=== PATIENT | female | born 1955 | race Caucasian/White ===

== ENCOUNTER 2018-05-18 18:27 | Observation (INO) | payer OTHER, SELFPAY ==
[2018-05-18] VITALS (8 sets, daily range): BP systolic 133–148; BP diastolic 67–73; PULSE 59–83; RESP 16–20; TEMP 36.5–36.8; O2SAT 94–98; BMI 31.1; BMI 30.8
--- NOTE | 2018-05-18 19:14 | EKG12_ITS ---
Test Reason : CP Blood Pressure : / mmHG Vent. Rate : 075 BPM Atrial Rate : 075 BPM P-R Int : 142 ms QRS Dur : 084 ms QT Int : 392 ms P-R-T Axes : 041 -45 040 degrees QTc Int : 437 ms Normal sinus rhythm Low voltage QRS Left anterior fascicular block Abnormal ECG Confirmed by CRIS BUSTAMANTE, EMILIO ([id number]), web content editor HANY STONE ([id number]) on 05/19/2018 1:01:38 PM Referred By: EVAN Confirmed By:EMILIO LYNCH MD
[2018-05-18] MEDS: Aspirin 81 MG TAB.CHEW 324 MG PO (19:20)
--- NOTE | 2018-05-18 19:20 | RAD_ITS ---
STUDY: X-RAY CHEST REASON FOR EXAM: Female, 62 years old. Chest pain. TECHNIQUE: Single AP portable view of the chest. COMPARISON: 06/26/2014. FINDINGS: The lungs are clear and expanded. There is no demonstrated pleural abnormality. Normal size heart. Normal mediastinum and yaya. Normal visualized pulmonary arteries. Normal visualized aortic arch and descending thoracic aorta. Normal visualized thoracic spine. Normal visualized ribs, clavicles, and shoulders. There is no demonstrated abnormality of the visualized soft tissue structures of the upper abdomen. RAD/Chest 1 View (Portable) IMPRESSION: Normal x-ray examination of the chest. Electronically Signed: Ruslan Luna MD at 19:33 EDT , Service support ,
--- NOTE | 2018-05-18 19:24 | ED.VISSUMM ---
- ER Visit Summary Date of Service: 05/18/18 Chief Complaint: Chest pain History of Present Illness: The patient is a 62 F past medical history of high cholesterol and depression. No prior cardiac history. Reportedly negative stress test 10-15 years ago. No prior cardiac cath. Significant family history of cardiac disease. Quit smoking 25 years ago. Patient states the last 2 months she has had intermittent not exertional chest pain. At times has trouble catching her breath. Denies nausea or diaphoresis. Occasionally it will radiate to her neck. Currently she is 2 out of 10 pain. No history of DVT or PE. No leg pain or swelling. No hemoptysis. This is not pleuritic. Physical Examination: Well-appearing middle-age female. Vital signs are stable afebrile. Pulse ox 97% on room air no signs of hypoxia. H EENT exam unremarkable. Neck nontender no lymphadenopathy. Lungs clear to auscultation bilaterally. Heart regular rate and rhythm no murmur. Chest wall nontender. Abdomen soft and nontender. Normal bowel sounds no peritoneal signs. No pulsatile mass. She is moving all 4 extremities. They are neurovascularly intact. Calves are nontender without edema or cords. Normal range of motion of both upper and lower extremities. She is equal symmetrical radial pulses. Neurologic exam she is awake alert with no focal motor or sensory deficits. Test Results: CBC normal hemoglobin 14. Electrolytes normal normal creatinine and gap. Troponin normal. Initial EKG sinus rhythm rate is 75 with no acute signs of [place] or ischemia. Chest x-ray normal normal cardiac silhouette and mediastinum. Read both by myself the radiologist. Emergency Department Course and Treatment: Patient will undergo a cardiac evaluation for atypical chest pain. Treatment Plan: Repeat exams ?2 patient doing well. She was given 1 sublingual nitroglycerin which resolved her chest pain. Currently she is pain-free her exam is unchanged. She and I and her sister who is a former ER nurse and RN here at [facility] did go over all of her test results. I recommended admission for further evaluation and stress testing which she is going to do. I have the hospitalist on page. Disposition: Admission Impression: Acute chest pain uncertain etiology This note was generated with Qwiltation software. It may contain incorrect words, spelling, and punctuation that were not noted in review of the chart prior to signing ED Disposition - Plan for ED Patient: Chief Complaint: Chest Pain Referrals: Sd Salinas MD [STAFF PHYSICIAN] -
[2018-05-18 19:29] LABS: Absolute Lymphocyte Count 4.03 X10^3/ul (0.83-4.51); Absolute Neutrophil Count 4.4 X10^3/uL (2.0-7.7); Basophil# 0.03 X10^3/uL; Basophil% 0.3 % (0-1); Eosinophil# 0.19 X10^3/uL; Hematocrit 40.9 % (37-47); Hemoglobin 14.3 g/dl (12.0-15.0); Lymphocyte # 4.03 X10^3/ul (4.0); Lymphocyte % 43.2 % (19-41); Mean Corpuscular Hgb 30.8 pg (27.0-32.0); Mean Corpuscular Volume 88.1 fL (81-99); Mean Platelet Vol. 9.5 fl (6.2-12.0); Monocyte# 0.68 X10^3/uL; Monocyte% 7.3 % (0-10); Neutrophil # 4.39 X10^3/uL (2.7-7.7); Neutrophil % 47.1 % (47-70); Platelet Count 346 K/mm3 (150-450); RBC Distribution Width CV 12.3 % (11.6-14.6); RBC Distribution Width SD 39.4 fl (35.1-43.9); Red Blood Count 4.64 M/mm3 (4.2-5.4); White Blood Count 9.3 K/mm3 (4.4-11.0)
[2018-05-18 19:41] LABS: POSITIVE COUNT NO; POSITIVE DIFFERENTIAL NO; POSITIVE MORPHOLOGY NO
[2018-05-18 19:46] LABS: Anion Gap 7 (5-15); BUN 15 mg/dL (7-18); BUN/Creat Ratio 15.7 RATIO (10-20); Chloride 105 mmol/L (98-107); Creatinine, Serum 0.95 mg/dL (0.55-1.02); EST Glomerular Filtration Rate 63 mL/min (>60); Est Glom Filt Rate - Afr Amer 77 mL/min (>60); Estimated Creatinine Clearance 47.52 ml/min; Glucose 84 mg/dL (74-106); Potassium 3.5 mmol/L (3.5-5.1); Sodium Level 139 mmol/L (136-145)
--- NOTE | 2018-05-18 20:30 | PCM.HP.STD ---
Problem List (1) Chest pain Status: Acute (2) Hyperlipidemia Status: Acute History of Present Illness Date of Admission: 05/18/18 Chief Complaint: Chest pain The patient is a 62 year old F with a significant history of hyperlipidemia, former smoker who presents because of progressively worsening chest pain ?1 day duration. Patient reports that in the last 2 months she has had multiple episodes of chest pain that last about 5-15 minutes each time. She has chest pain of 4-5 times a week; typically one episode of chest pain in each particular day. Typically her chest pain goes away when she tries to meditate. However, on the day of admission she continued to have multiple episodes of chest pain. She described her chest pain as located in her mid sternum that prevents her from taking a deep breath. The severity of her chest pain was about 7 out of 10. Her chest pain is nonradiating. At emergency department she received sublingual nitroglycerin that make her pain go away. She was also given 4 tablets of baby aspirin at emergency department. In regard to a hyperlipidemia she does not take any medication and she was getting ready for a follow-up with her PCP. Past Medical History Medical History: Medical History (Last Updated 05/19/18 @ 01:49 by Kiran Reynolds MD) Hyperlipidemia E78.5 Allergies Penicillins Allergy (Verified 06/26/14 14:12) Hives Sulfa (Sulfonamide Antibiotics) Allergy (Verified 06/26/14 14:12) Unknown codeine Adverse Reaction (Verified 06/26/14 14:12) Nausea/Vom/Diarrhea Home Medications: Ambulatory Orders Medication Instructions Recorded Paroxetine HCl [Paxil] 40 mg PO DAILY 06/26/14 Acetaminophen [Tylenol Extra 500 mg PO PRN PRN 05/18/18 Strength] Lorazepam [Ativan] 1 mg PO QHS PRN PRN 05/18/18 Polyvinyl Alcohol [Artificial 1 drop EACH EYE PRN PRN 05/18/18 Tears] Surgical History: no surgical history Lives: Spouse/ Significant Other Smoking Status: Former smoker Tobacco Use: Non-smoker Alcohol: Rare Drugs: None - *Family History Maternal History Items: Heart Disease Paternal History Items: Heart Disease Review of Systems Constitutional: Denies: Chills, Fever, Weight Change HEENT: Denies: Head Aches, Sinus Congestion, Sinus Drainage Cardiovascular: Reports: Chest Pain Respiratory: Denies: Cough, Shortness of breath at rest, Sputum production Gastrointestinal: Denies: Abdominal Pain, Nausea, Vomiting Genitourinary: Denies: Dysuria Musculoskeletal: Denies: Joint Pain, Joint Tenderness Skin: Denies: Rash, Wounds Neurological: Denies: Numbness, Tingling, Focal weakness Psychiatric: Reports: Homicidal Ideations, Suicidal Ideations Hematologic/ Lymphatic: Denies: Easy Bruising, Easy Bleeding VTE Information - Inpt Only VTE Present on Admission: No VTE Mechan Device Prophylaxis: None VTE Pharm Prophylaxis ordered?: Yes Patient Problems: Active and Suspected Problems (Last Updated 05/19/18 @ 01:49 by Kiran Reynolds MD) Chest pain (Acute) Hyperlipidemia (Acute) - Physical Exam General: Alert, Oriented x3, Cooperative HEENT: Atraumatic Neck: Supple, No JVD, Negative Carotid Bruits Lungs: Clear to auscultation, Normal air movement, - - Nontender chest Cardiovascular: Regular rate, No murmurs Abdomen: Bowel Sounds Present, Soft, Non Tender Extremities: No edema, Capillary Refill Less than 3 Seconds Skin: No rashes, No breakdown Musculoskeletal: No Tenderness to Palpation of Joints or Extremities Neurological: Cranial nerves II-XII grossly intact Psych/Mental Status: Normal Affect, Appropriate Vital Signs Temp Pulse Resp BP Pulse Ox 98.2 F 61 16 136/67 H 98 05/18/18 18:32 05/18/18 20:01 05/18/18 20:01 05/18/18 20:01 05/18/18 20:01 Oxygen Delivery Method Room Air Weight: 74.843 kg Body Mass Index (BMI) 31.1 Laboratory Tests Past 24 Hrs 05/18/18 05/18/18 18:37 18:37 WBC 9.3 RBC 4.64 Hgb 14.3 Hct 40.9 MCV 88.1 MCH 30.8 MCHC 35.0 RDW 12.3 RDW Differential 39.4 Plt Count 346 MPV 9.5 Immature Gran % (Auto) 0.100 Neut % (Auto) 47.1 Lymph % (Auto) 43.2 H [place] % (Auto) 7.3 Eos % (Auto) 2.0 Baso % (Auto) 0.3 Absolute Neuts (auto) 4.4 Absolute Lymphs (auto) 4.03 Total Counted Not Reportable Sodium 139 Potassium 3.5 Chloride 105 Carbon Dioxide 27.0 Anion Gap 7 BUN 15 Creatinine 0.95 Estim Creat Clear Calc 47.52 Est GFR (MDRD) Af Amer 77 Est GFR (MDRD) Non-Af 63 BUN/Creatinine Ratio 15.7 Glucose 84 Calcium 9.0 Troponin I < 0.015 Assessment/Plan All Active Problems (Last Updated 05/19/18 @ 01:49 by Kiran Reynolds MD) Chest pain (Acute) Hyperlipidemia (Acute) 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 Chest pain RICKI score is 1 (severe angina more or equal to 2 episodes in 24 hours), low score HEART score is two-point, low score She reports that and mom and dad had heart problems and stents EKG interpreted by me showed left axis deviation with incomplete right bundle branch block Troponin is negative Patient home medication list includes paroxetine and Lorazepam as needed. It could be that her chest pain is related to anxiety. However rule out cardiac source of chest pain. Serial troponin ordered. Patient does not want a treadmill stress test. She states that she is out of shape. Shared decision to do a nuclear stress test. Keep n.p.o. for stress test. Fasting lipids in a.m. Baby aspirin daily Lipitor 80 mg daily Fasting lipids in a.m. Hyperlipidemia Lipitor ordered as above Fasting lipids in a.m. Depression/anxiety Schedule paroxetine and as needed Ativan continued. DVT prophylaxis subcutaneous heparin. Code Visit OBSV E&M: 52806 Initial observation care L2
--- NOTE | 2018-05-18 20:35 | NURSING ---
Called ED power house control room operatorSherry RIVERA at this time to confirm Pt is okay to come to PCU.
--- NOTE | 2018-05-18 20:50 | EKG12_ITS ---
Test Reason : CP ADMIT Blood Pressure : / mmHG Vent. Rate : 053 BPM Atrial Rate : 053 BPM P-R Int : 156 ms QRS Dur : 088 ms QT Int : 444 ms P-R-T Axes : 038 -35 027 degrees QTc Int : 416 ms Sinus bradycardia Left axis deviation Abnormal ECG When compared with ECG of 26-JUN-2014 13:36, No significant change was found Confirmed by TIGIST CARBAJAL ([id number]), supervising editor trailer HANY STONE ([id number]) on 05/23/2018 2:15:54 PM Referred By: WHITNEY Confirmed By:TIGIST CARBAJAL
[2018-05-18] MEDS: Heparin Injection (Vial) 5,000 UNIT/ML VIAL 5000 UNIT SC (21:27)
[2018-05-18] MEDS: Atorvastatin Calcium 80 MG Tablet PO (21:27)
[2018-05-19 03:05] VITALS: BP 132/55; PULSE 62; RESP 18; TEMP 36.9; O2SAT 95
[2018-05-19 03:12] VITALS: PULSE 61
[2018-05-19] MEDS: Aspirin E.C. 81 MG Tablet PO (05:28)
[2018-05-19 05:29] LABS: Absolute Lymphocyte Count 2.65 X10^3/ul (0.83-4.51); Absolute Neutrophil Count 2.8 X10^3/uL (2.0-7.7); Basophil# 0.04 X10^3/uL; Basophil% 0.6 % (0-1); Eosinophil# 0.16 X10^3/uL; Eosinophils% 2.6 % (0-5); Hematocrit 40.4 % (37-47); Hemoglobin 14.2 g/dl (12.0-15.0); Lymphocyte # 2.65 X10^3/ul (4.0); Lymphocyte % 42.4 % (19-41); Mean Corp Hgb Conc 35.1 g/gl (32-36); Mean Corpuscular Hgb 30.9 pg (27.0-32.0); Mean Corpuscular Volume 87.8 fL (81-99); Mean Platelet Vol. 9.7 fl (6.2-12.0); Monocyte# 0.59 X10^3/uL; Monocyte% 9.4 % (0-10); Neutrophil % 44.8 % (47-70); Platelet Count 355 K/mm3 (150-450); RBC Distribution Width CV 12.2 % (11.6-14.6); RBC Distribution Width SD 38.2 fl (35.1-43.9); White Blood Count 6.3 K/mm3 (4.4-11.0)
[2018-05-19 05:30] VITALS: BP 106/53; PULSE 59; RESP 18; TEMP 36.7; O2SAT 95
[2018-05-19 05:32] LABS: POSITIVE COUNT NO; POSITIVE DIFFERENTIAL NO; POSITIVE MORPHOLOGY NO
[2018-05-19 05:42] LABS: Prothrombin Time (Protime)PT. 13.3 SECONDS (11.7-14.9)
[2018-05-19 05:43] LABS: Partial Thromboplast Time 30.7 Seconds (24.1-36.2)
--- NOTE | 2018-05-19 05:55 | EKG12_ITS ---
Test Reason : AM EKG Blood Pressure : / mmHG Vent. Rate : 059 BPM Atrial Rate : 059 BPM P-R Int : 154 ms QRS Dur : 086 ms QT Int : 434 ms P-R-T Axes : 047 -37 025 degrees QTc Int : 429 ms Sinus bradycardia Left axis deviation Nonspecific T wave abnormality Abnormal ECG When compared with ECG of 18-MAY-2018 21:02, MANUAL COMPARISON REQUIRED, DATA IS UNCONFIRMED Confirmed by TIGIST CARBAJAL ([id number]), editorial project manager HANY STONE ([id number]) on 05/23/2018 2:01:18 PM Referred By: WHITNEY Confirmed By:TIGIST CARBAJAL
[2018-05-19 06:06] LABS: AST(SGOT) 20 U/L (15-37); Alanine Aminotransfer ALT/SGPT 36 U/L (13-56); Albumin, Serum 3.7 g/dL (3.2-5.0); Alkaline Phosphatase 49 U/L (45-117); Anion Gap 7 (5-15); BUN 14 mg/dL (7-18); BUN/Creat Ratio 16.5 RATIO (10-20); Bilirubin, Direct 0.15 mg/dL (0.00-0.30); Calcium,Total 8.5 mg/dL (8.5-10.1); Chloride 107 mmol/L (98-107); Cholesterol 188 mg/dL (200); Creatinine, Serum 0.85 mg/dL (0.55-1.02); EST Glomerular Filtration Rate 73 mL/min (>60); Est Glom Filt Rate - Afr Amer 88 mL/min (>60); Estimated Creatinine Clearance 53.11 ml/min; Globulin 3.3 g/dL (2.2-4.2); Glucose 97 mg/dL (74-106); High Density Lipoprotein 41 mg/dL; Potassium 3.7 mmol/L (3.5-5.1); Sodium Level 141 mmol/L (136-145); Thyroid Stim Hormone (TSH) 1.87 uIU/mL (0.358-3.74); Triglycerides 188 mg/dL; Very Low Density Lipoprotein 38 mg/dL (5-40)
--- NOTE | 2018-05-19 07:32 | STRESSREP ---
Stress Test Report Pharmacologic myocardial perfusion stress test. 62-year-old lady with a history of chest pain. Medications aspirin Lipitor Paxil. Stress protocol: Resting EKG demonstrates sinus bradycardia with a rate of 57 bpm normal intervals and noted resting blood pressure is 110/64 mmHg. 0.4 mg of regadenoson was infused per usual protocol followed by rapid intravenous saline flush injection continuous EKG monitoring was performed. The maximum heart rate attained was 106 bpm which was 66% maximum predicted heart rate the maximum workload attained was 1 metabolic equivalent. At rest there were no ST or T-wave changes noted suggest abnormal flow reserve at peak infusion no ST or T-wave changes were noted suggest abnormal flow reserve. Myocardial perfusion protocol. 11.6 mCi of technetium 99m sestamibi was injected at rest. 0.5 mg regadenoson was infused per usual protocol peak infusion 33.8 mCi of technetium 99m sestamibi was injected stress images were obtained stress and rest images were reconstructed and compared in the short axis vertical long and horizontal long axis. Gated images were also obtained pre- Perfusion SPECT analysis: Review of the images demonstrate normal uptake of tracer noted in all areas of the myocardium. The resting images similarly demonstrate normal uptake of tracer noted in all areas of the myocardium. No areas of reversibility are noted suggest ischemia no previous infarct is noted. Gated SPECT analysis: The gated ejection fraction is noted to be 78%. Conclusion: Normal pharmacologic myocardial perfusion stress test. Preserved ejection fraction.
[2018-05-19 08:00] VITALS: O2SAT 96
[2018-05-19 08:08] VITALS: BP 125/70; PULSE 66; RESP 14; TEMP 36.8; O2SAT 97
--- NOTE | 2018-05-19 08:56 | DCINST_ITS ---
- Discharge Diagnoses Current Active Problems: Current Active and Chronic Problems (Last Updated 05/19/18 @ 01:49 by Kiran Reynolds MD) Chest pain (Acute) You will use the following diet at home:: No restrictions Discharge Activity: Return to Normal Activity Call your doctor if you observe: Shortness of breath, Dizziness, Fainting spells , Chest pain Allergies/Adverse Reactions: Allergies Penicillins Allergy (Verified 06/26/14 14:12) Hives Sulfa (Sulfonamide Antibiotics) Allergy (Verified 06/26/14 14:12) Unknown codeine Adverse Reaction (Verified 06/26/14 14:12) Nausea/Vom/Diarrhea Medications to take at Discharge Paroxetine HCl [Paxil] 40 mg PO DAILY 06/26/14 Acetaminophen [Tylenol Extra Strength] 500 mg PO PRN PRN 05/18/18 Lorazepam [Ativan] 1 mg PO QHS PRN PRN 05/18/18 Polyvinyl Alcohol [Artificial Tears] 1 drop EACH EYE PRN PRN 05/18/18 Primary Care Physician: Sd Salinas MD [STAFF PHYSICIAN] - Please follow up with your Primary Care Physician in: 1 Week Test Results: Test results from this visit will be discussed in further detail at your follow- up appointment, if applicable. Proposed Discharge Date: 05/19/18
--- NOTE | 2018-05-19 09:34 | PCM.DC.SUM ---
Discharge Date and Diagnosis Date of Admission: 05/18/18 Date of Discharge: 05/19/18 - Primary Discharge Diagnosis Active and Suspected Problems (Last Updated 05/19/18 @ 01:49 by Kiran Reynolds MD) 1. Chest pain-ACS ruled out. - Secondary Discharge Diagnosis Depression/anxiety Hospital Course and Treatment Imaging Results: Diagnostic Data Chest X-Ray 05/18/18 19:20 IMPRESSION: Normal x-ray examination of the chest. Electronically Signed: Ruslan Luna MD at 19:33 EDT , Service support , Operations: None Procedures: Stress test Summary of Care Provided: The patient is a 62 year old F admitted 05/18/2018 due to chest pain. She has a past medical history of hyperlipidemia, depression, anxiety. Chest x-ray unremarkable. Troponin negative. Lab work unremarkable. Patient denies further chest pain. She underwent nuclear stress test which was negative for ischemia. Lipid panel within normal limits. Recommend further evaluation of this by primary care physician with addition of statin if found appropriate. Vital signs stable. Patient has had multiple episodes of similar chest pain over the past few months which last 5-15 minutes at a time. She reports 4-5 days out of the week this will occur. Feel this may be related to anxiety. Recommend further discussion with primary care physician. General: Alert, Oriented x3, Cooperative HEENT: Atraumatic Neck: Supple, No JVD, Negative Carotid Bruits Lungs: Clear to auscultation, Normal air movement Cardiovascular: Regular rate, No murmurs Abdomen: Bowel Sounds Present, Soft, Non Tender Extremities: No edema, Capillary Refill Less than 3 Seconds Skin: No rashes, No breakdown Musculoskeletal: No Tenderness to Palpation of Joints or Extremities Neurological: Cranial nerves II-XII grossly intact Psych/Mental Status: Normal Affect, Appropriate Patient seen exam prior to discharge. Physical assessment as noted above. Patient is stable for discharge home with follow-up with primary care physician in 1 week. Discharge Diet: Low fat/ Low Cholesterol Discharge Activity: Return to Normal Activity Call your doctor if you observe: Shortness of breath, Dizziness, Fainting spells, Chest pain Home Medications: Medications to take at Discharge Paroxetine HCl [Paxil] 40 mg PO DAILY 06/26/14 Acetaminophen [Tylenol Extra Strength] 500 mg PO PRN PRN 05/18/18 Lorazepam [Ativan] 1 mg PO QHS PRN PRN 05/18/18 Polyvinyl Alcohol [Artificial Tears] 1 drop EACH EYE PRN PRN 05/18/18 Primary Care Physician: Sd Salinas MD [STAFF PHYSICIAN] - Please follow up with your Primary Care Physician in: 1 Week Disposition: Home Minutes spent on discharge:: 35 Patient Condition:: Stable Medical Necessity - Tobacco Use Smoking Status: Former smoker Tobacco Use: Non-smoker Meaningful Use Info Meaningful Use Diagnoses (Choose all that apply): None applicable
--- NOTE | 2018-05-19 09:49 | DS.PCM_ITS ---
Addendum entered and electronically signed by MERE Palomo 05/19/18 09:52: Code Visit This patient was seen by MERE Palomo under the supervision of Dr. Erickson. Original Note: Discharge Date and Diagnosis Date of Admission: 05/18/18 Date of Discharge: 05/19/18 - Primary Discharge Diagnosis Active and Suspected Problems (Last Updated 05/19/18 @ 01:49 by Kiran Reynolds MD) 1. Chest pain-ACS ruled out. - Secondary Discharge Diagnosis Depression/anxiety Hospital Course and Treatment Imaging Results: Diagnostic Data Chest X-Ray 05/18/18 19:20 IMPRESSION: Normal x-ray examination of the chest. Electronically Signed: Ruslan Luna MD at 19:33 EDT , Service support , Operations: None Procedures: Stress test Summary of Care Provided: The patient is a 62 year old F admitted 05/18/2018 due to chest pain. She has a past medical history of hyperlipidemia, depression, anxiety. Chest x-ray unremarkable. Troponin negative. Lab work unremarkable. Patient denies further chest pain. She underwent nuclear stress test which was negative for ischemia. Lipid panel within normal limits. Recommend further evaluation of this by primary care physician with addition of statin if found appropriate. Vital signs stable. Patient has had multiple episodes of similar chest pain over the past few months which last 5-15 minutes at a time. She reports 4-5 days out of the week this will occur. Feel this may be related to anxiety. Recommend further discussion with primary care physician. General: Alert, Oriented x3, Cooperative HEENT: Atraumatic Neck: Supple, No JVD, Negative Carotid Bruits Lungs: Clear to auscultation, Normal air movement Cardiovascular: Regular rate, No murmurs Abdomen: Bowel Sounds Present, Soft, Non Tender Extremities: No edema, Capillary Refill Less than 3 Seconds Skin: No rashes, No breakdown Musculoskeletal: No Tenderness to Palpation of Joints or Extremities Neurological: Cranial nerves II-XII grossly intact Psych/Mental Status: Normal Affect, Appropriate Patient seen exam prior to discharge. Physical assessment as noted above. Patient is stable for discharge home with follow-up with primary care physician in 1 week. Discharge Diet: Low fat/ Low Cholesterol Discharge Activity: Return to Normal Activity Call your doctor if you observe: Shortness of breath, Dizziness, Fainting spells , Chest pain Home Medications: Medications to take at Discharge Paroxetine HCl [Paxil] 40 mg PO DAILY 06/26/14 Acetaminophen [Tylenol Extra Strength] 500 mg PO PRN PRN 05/18/18 Lorazepam [Ativan] 1 mg PO QHS PRN PRN 05/18/18 Polyvinyl Alcohol [Artificial Tears] 1 drop EACH EYE PRN PRN 05/18/18 Primary Care Physician: Sd Salinas MD [STAFF PHYSICIAN] - Please follow up with your Primary Care Physician in: 1 Week Disposition: Home Minutes spent on discharge:: 35 Patient Condition:: Stable Medical Necessity - Tobacco Use Smoking Status: Former smoker Tobacco Use: Non-smoker Meaningful Use Info Meaningful Use Diagnoses (Choose all that apply): None applicable
== END 2018-05-19 09:55 | disposition home or self-care (01) ==
LOC: ED 19:56 → PCU 20:35
PROVIDERS: Admitting Provider Hospitalist; Emergency Provider Emergency Medicine; Family Provider Family Medicine; PCP Family Medicine; Visit Provider Internal Medicine
DX: R07.89 Other chest pain (principal); F32.9 Major depressive disorder, single episode, unspecified; Z79.899 Other long term (current) drug therapy; Z87.891 Personal history of nicotine dependence; Z82.49 Family history of ischemic heart disease and other diseases of the circulatory system; E78.5 Hyperlipidemia, unspecified; F41.9 Anxiety disorder, unspecified; I45.10 Unspecified right bundle-branch block
CPT/HCPCS: 36415; 71045; 78452; 80048; 80061; 80076; 84443; 84484; 85025; 85610; 85730; 93005; 93017; 96372; 99218; 99284; A9500; A4216; G0378; J2785

== ENCOUNTER → 2021-03-04 08:42 | Outpatient (CLI) | payer OTHER, SELFPAY ==
--- NOTE | 2021-03-04 08:45 | RAD_ITS ---
PROCEDURE: Fluoroscopic guided left shoulder Injection DATE: 03/04/2021. INDICATION: Female, 65 years old. Adhesive capsulitis of the left shoulder. PHYSICIAN: Siddharth Odonnell M.D. MEDICATIONS: 12 mg of BETAMETHASONE and 4 cc of 1% LIDOCAINE. 2% Lidocaine administered subcutaneously for local anesthesia. ACCESS SITE: Left shoulder. NEEDLE: 22-gauge spinal needle. FLUOROSCOPY TIME (if supplied): (0:36) minutes/seconds. One image was submitted. FINDINGS: The risks, benefits, and alternatives to the procedure were explained to the patient. The specific risks of bleeding, infection, and neurovascular injury were detailed and accepted. Witnessed informed consent was obtained. A 22-gauge spinal needle was positioned under radiographic fluoroscopic localization. Approximately 2 cc of ISOVUE-300 was instilled for localization purposes. Medication was then injected. The patient tolerated the procedure well without any immediate complications. RAD/Inj/Asp Sheldon Jt Should/Hip/Knee IMPRESSION: 1. Successful fluoroscopic guided left shoulder injection. Electronically Signed: Siddharth Odonnell MD at 9:36 EDT , Service support ,
== END ==
PROVIDERS: PCP Family Medicine; Referring Provider Physician Assistant Surgical; Visit Provider Physician Assistant Surgical
DX: M75.02 Adhesive capsulitis of left shoulder (principal); M19.012 Primary osteoarthritis, left shoulder; M75.42 Impingement syndrome of left shoulder
CPT/HCPCS: 20610; 77002; J0702

== ENCOUNTER → 2021-08-17 | Outpatient (CLI) | payer OTHER, SELFPAY | END | disposition home or self-care (01) | PROVIDERS: PCP Family Medicine; Referring Provider Family Medicine; Visit Provider Family Medicine | DX: U07.1 COVID-19 (principal) | CPT/HCPCS: 87635; U0005; U0003 ==

== ENCOUNTER → 2022-09-28 | Outpatient (CLI) | payer MEDICARE, OTHER, SELFPAY ==
[2022-09-28 17:54] LABS: Absolute Lymphocyte Count 2.98 X10^3/uL (0.83-4.51); Absolute Neutrophil Count 4.3 X10^3/uL (2.0-7.7); Basophil# 0.08 X10^3/uL; Eosinophils% 2.5 % (0-5); Hematocrit 42.4 % (37-47); Lymphocyte # 2.98 X10^3/ul (0.83-4.51); Lymphocyte % 36.8 % (19-41); Mean Corp Hgb Conc 35.4 g/dL (32-36); Mean Corpuscular Hgb 31.2 pg (27.0-32.0); Mean Corpuscular Volume 88.1 fL (81-99); Mean Platelet Vol. 9.8 fl (6.2-12.0); Monocyte# 0.52 X10^3/uL; Monocyte% 6.4 % (0-10); NRBC Flagged by Analyzer 0 % (0-5); Neutrophil % 53.2 % (47-70); Platelet Count 374 K/mm3 (150-450); RBC Distribution Width CV 12.2 % (11.6-14.6); RBC Distribution Width SD 39.5 fl (35.1-43.9); Red Blood Count 4.81 M/mm3 (4.2-5.4); White Blood Count 8.1 K/mm3 (4.4-11.0)
[2022-09-28 18:31] LABS: ALB/GLOB Ratio 1.1 RATIO (0.9-2.4); AST(SGOT) 22 U/L (15-37); Alanine Aminotransfer ALT/SGPT 43 U/L (13-56); Albumin, Serum 3.9 g/dL (3.2-5.0); Alkaline Phosphatase 55 U/L (45-117); Anion Gap 8 (5-15); BUN 15 mg/dL (7-18); BUN/Creat Ratio 16.8 RATIO (10-20); Chloride 104 mmol/L (98-107); Creatinine, Serum 0.89 mg/dL (0.55-1.02); EST Glomerular Filtration Rate 67 mL/min (>60); Est Glom Filt Rate - Afr Amer 81 mL/min (>60); Globulin 3.6 g/dL (2.2-4.2); Glucose 86 mg/dL (74-106); Potassium 3.9 mmol/L (3.5-5.1); Protein, Total 7.5 g/dL (6.4-8.2); Sodium Level 139 mmol/L (136-145); Thyroid Stim Hormone (TSH) 1.85 uIU/mL (0.358-3.74)
[2022-09-28 18:37] LABS: Hemoglobin A1c 5.4 % (3.8-5.6)
== END | disposition home or self-care (01) ==
LOC: BFHLAB 14:07
PROVIDERS: PCP Family Medicine; Visit Provider Family Medicine
DX: Z00.00 Encounter for general adult medical examination without abnormal findings (principal); F32.A Depression, unspecified; R73.01 Impaired fasting glucose; G25.81 Restless legs syndrome
CPT/HCPCS: 36415; 80053; 83036; 84443; 85025